=== PATIENT | female | born 1960 | race Caucasian/White ===

== ENCOUNTER 2016-06-10 10:01 | Day surgery (SDC) | payer OTHER ==
[~2016-06-10] VITALS: Ht 165.1 cm; Wt 82.1 kg
[~2016-06-10 10:01] MED LIST: AMBIEN5 MG PO; BIOTIN PO; BUSPAR10 MG PO; BUSPIRONE HCL15 MG PO; COLACE100 MG PO; COQ10 PO; CYCLOBENZAPRINE10 MG PO; DILAUDID2 MG PO; DOXYCYCLINE HY100 MG PO; FOLIC ACID1 MG PO; GABAPENTIN300 MG PO; GABAPENTIN400 MG PO; LAMOTRIGINE25 MG PO; MAXEPA500 MG PO; MULTIVITAMIN1 EAC2 PO; NAPROXEN500 MG PO; NEURONTIN400 MG PO; OSTEO BI-FLEX1 EAC1 PO; STOOL SOFTENER100 MG PO; TRAMADOL HCL50 MG PO; TRAZODONE HCL50 MG PO; ULTRAM50 MG PO; VITAMIN B-1100 MG PO; VITAMIN B12-FO1 EACH PO
== END 2016-06-10 12:37 | disposition home or self-care (01) ==
LOC: PAIN 10:01 → SDC 10:15 → PAIN 10:15
DX: M16.12 Unilateral primary osteoarthritis, left hip (principal); F41.9 Anxiety disorder, unspecified; G89.29 Other chronic pain; M54.16 Radiculopathy, lumbar region; F17.200 Nicotine dependence, unspecified, uncomplicated
CPT/HCPCS: J1030; J3010; S0020

== ENCOUNTER 2016-06-29 07:34 | Day surgery (SDC) | payer OTHER ==
[~2016-06-29] VITALS: Ht 165.1 cm; Wt 82.1 kg
== END 2016-06-29 09:24 | disposition home or self-care (01) ==
LOC: PAIN 07:34 → SDC 07:45 → PAIN 09:24
DX: M54.16 Radiculopathy, lumbar region (principal); G89.29 Other chronic pain; F41.1 Generalized anxiety disorder; F17.200 Nicotine dependence, unspecified, uncomplicated; M43.10 Spondylolisthesis, site unspecified
CPT/HCPCS: J1100; J2250; J3010

== ENCOUNTER 2016-07-27 07:20 | Day surgery (SDC) | payer OTHER ==
[~2016-07-27] VITALS: Ht 165.1 cm; Wt 82.1 kg
== END 2016-07-27 09:20 | disposition home or self-care (01) ==
LOC: PAIN 07:20 → SDC 07:45 → PAIN 09:20
PROC: 3E0S33Z Introduction of Anti-inflammatory into Epidural Space, Percutaneous Approach (ICD-10-PCS; principal; 2016-07-27)
DX: M54.16 Radiculopathy, lumbar region (principal); F41.9 Anxiety disorder, unspecified; Z88.5 Allergy status to narcotic agent
CPT/HCPCS: J1100; J2250; J3010